=== PATIENT | male | born 1940 | race Caucasian/White ===

== ENCOUNTER 2016-06-21 18:14 | Emergency (ER) | payer MEDICARE ==
[2016-06-21] MEDS ORDERED: IV NORMAL SALINE 500ML BAG 500 ML IV ONE (18:30)
[2016-06-21] MEDS ORDERED: ONDANSETRON PF 4 MG/2 ML VIAL. IV ONE (18:30)
[2016-06-21 18:41] VITALS: BP 189/84
--- NOTE | 2016-06-21 18:52 | EKG ---
[facility] [address] [place] [address] Test Date: 2016-06-21 Test Time: 18:42:21 Pat Name: BLAYNE VALDEZ Department: Room: Gender: M Patent Attorney: : 1940 Requested By: GENARO CALVIN Order Number: [id number] Reading MD: Faye Verdin Measurements Intervals [place] Rate: 59 P: SD: QRS: -48 QRSD: 114 T: 23 QT: 480 QTc: 475 Interpretive Statements IRREGULAR RHYTHM, NO P-WAVE FOUND ABNORMAL LEFT AXIS DEVIATION QRS(T) CONTOUR ABNORMALITY CONSISTENT WITH INFERIOR INFARCT PROBABLY OLD ABNORMAL ECG RI6.01 No previous ECG available for comparison Electronically Signed On 06-23-2016 18:59:16 MATERIALS MGMT TECH by Faye Verdin
[2016-06-21] MEDS ORDERED: MECLIZINE HCL 12.5 MG TABLET. PO ONE (19:15)
[2016-06-21 19:20] LABS: BASO % 0 % (0-3); EOS % 5 % (0-3); HEMATOCRIT 36.5 % (39.0-53.0); HEMOGLOBIN 12.1 g/dL (13.0-17.5); LYMPH % 16 % (24-48); MEAN CORPUSCULAR HEMOGLOBIN 31 pg (25-35); MEAN CORPUSCULAR HGB CONC 33 g/dL (31-37); MEAN CORPUSCULAR VOLUME 94 fL (79-100); MONO % 5 % (0-9); NEUT % 73 % (31-73); PLATELET COUNT 106 x10^3/uL (140-400); RED BLOOD COUNT 3.88 x10^6/uL (4.30-5.70); RED CELL DISTRIBUTION WIDTH 15.9 % (11.5-14.5); WHITE BLOOD COUNT 6.1 x10^3/uL (4.0-11.0)
[2016-06-21 19:28] LABS: CALCIUM 8.5 mg/dL (8.5-10.1); CREATININE 1.6 mg/dL (0.7-1.3); GFR 42.2; POTASSIUM 4.1 mmol/L (3.5-5.1)
[2016-06-21 20:35] LABS: OBC FLU VALID
[2016-06-21 20:41] LABS: BILIRUBIN,URINE SMALL (NEG); GLUCOSE,URINE NEGATIVE (NEG); NITRITE,URINE NEGATIVE (NEG); PH,URINE 5.5; PROTEIN,URINE NEGATIVE (NEG-TRACE)
[2016-06-21] MEDS ORDERED: ONDA4TAB7 PO (20:41)
[2016-06-21] MEDS ORDERED: MECL25TA3 PO (20:41)
--- NOTE | 2016-06-21 20:41 | PHYS DOC ---
Past Medical History Past Medical History: Depression, Diabetes-Type II, GERD, High Cholesterol, Hypertension, Prostatitis, Other Additional Past Medical Histor: CHRONIC BACK, VERTIGO Past Surgical History: Other Additional Past Surgical Histo: STENT PLACEMENT Alcohol Use: None Drug Use: None Adult General Chief Complaint Chief Complaint: NAUSEA/VOMITING/DIARRHA HPI HPI 76-year-old male who presents with Q nonsedative vertigo symptoms and these had previously multiple times. Patient has been prescribed meclizine and past for episodes of vertigo. He denies any chest pain or shortness of breath. He denies any fever or chills. He denies any abdominal pain. Patient states his symptoms are worse when he moves his head or walks. At rest and when he is not moving his head he states he feels otherwise normal. Patient does state he has chronic problems with his years and has trouble hearing. He does also have chronic ringing in his ears. Patient has no headache and appears in no distress at this time. Review of Systems Review of Systems Constitutional: Denies fever or chills [] Eyes: Denies change in visual acuity, redness, or eye pain [] HENT: Denies nasal congestion or sore throat [] Respiratory: Denies cough or shortness of breath [] Cardiovascular: No additional information not addressed in HPI [] GI: Denies abdominal pain, has nausea, denies vomiting, denies bloody stools or diarrhea [] : Denies dysuria or hematuria [] Musculoskeletal: Denies back pain or joint pain [] Integument: Denies rash or skin lesions [] Neurologic: Denies headache, focal weakness or sensory changes [] Endocrine: Denies polyuria or polydipsia [] Current Medications Current Medications Current Medications Medications (Trade) Dose Ordered Sig/Rupal Start Time Stop Time Status Last Admin Dose Admin Meclizine HCl (Antivert) 50 mg 1X ONCE 06/21/16 19:15 06/21/16 19:16 DC 06/21/16 19:15 50 MG Ondansetron HCl 4 mg 4 mg 1X ONCE 06/21/16 18:30 06/21/16 18:43 DC 06/21/16 19:15 4 MG Sodium Chloride (Iv Sodium Chloride 0.9% 500ml Bag) 500 ml @ 500 mls/hr 1X ONCE 06/21/16 18:30 06/21/16 19:29 DC 06/21/16 19:00 500 MLS/HR Allergies Allergies Allergies Coded Allergies Type Severity Reaction Last Updated Verified Penicillins Allergy Unknown 06/21/16 Yes sulfamethoxazole Allergy Unknown 06/21/16 Yes trimethoprim Allergy Unknown 06/21/16 Yes Physical Exam Physical Exam Constitutional: Well developed, well nourished, no acute distress, non-toxic appearance. [] HENT: Normocephalic, atraumatic, bilateral external ears normal, oropharynx moist, no oral exudates, nose normal. [] Eyes: PERRLA, EOMI, conjunctiva normal, no discharge, right sided horizontal nystagmus. [] Neck: Normal range of motion, no tenderness, supple, no stridor. [] Cardiovascular:Heart rate regular rhythm, no murmur [] Lungs & Thorax: Bilateral breath sounds clear to auscultation [] Abdomen: Bowel sounds normal, soft, no tenderness, no masses, no pulsatile masses. [] Skin: Warm, dry, no erythema, no rash. [] Back: No tenderness, no CVA tenderness. [] Extremities: No tenderness, no cyanosis, no clubbing, ROM intact, no edema. [] Neurologic: Alert and oriented X 3, normal motor function, normal sensory function, no focal deficits noted. [] Psychologic: Affect normal, judgement normal, mood normal. [] Current Patient Data Vital Signs Vital Signs Date Time Temp Pulse Resp B/P Pulse Ox O2 Delivery O2 Flow Rate FiO2 06/21/16 18:41 98.0 67 14 189/84 96 Room Air 98.0 Lab Values Laboratory Tests Test 06/21/16 19:10 06/21/16 19:45 06/21/16 20:25 White Blood Count 6.1x10^3/uL (4.0-11.0) Red Blood Count 3.88x10^6/uL (4.30-5.70) L Hemoglobin 12.1g/dL (13.0-17.5) L Hematocrit 36.5% (39.0-53.0) L Mean Corpuscular Volume 94fL (79-100) Mean Corpuscular Hemoglobin 31pg (25-35) Mean Corpuscular Hemoglobin Concent 33g/dL (31-37) Red Cell Distribution Width 15.9% (11.5-14.5) H Platelet Count 106x10^3/uL (140-400) L Neutrophils (%) (Auto) 73% (31-73) Lymphocytes (%) (Auto) 16% (24-48) L Monocytes (%) (Auto) 5% (0-9) Eosinophils (%) (Auto) 5% (0-3) H Basophils (%) (Auto) 0% (0-3) Neutrophils # (Auto) 4.5x10^3uL (1.8-7.7) Lymphocytes # (Auto) 1.0x10^3/uL (1.0-4.8) Monocytes # (Auto) 0.3x10^3/uL (0.0-1.1) Eosinophils # (Auto) 0.3x10^3/uL (0.0-0.7) Basophils # (Auto) 0.0x10^3/uL (0.0-0.2) Sodium Level 142mmol/L (136-145) Potassium Level 4.1mmol/L (3.5-5.1) Chloride Level 106mmol/L (98-107) Carbon Dioxide Level 26mmol/L (21-32) Anion Gap 10 (6-14) Blood Urea Nitrogen 27mg/dL (8-26) H Creatinine 1.6mg/dL (0.7-1.3) H Estimated GFR (Cockcroft-Gault) 42.2 Glucose Level 133mg/dL (70-99) H Calcium Level 8.5mg/dL (8.5-10.1) Troponin I Quantitative < 0.017ng/mL (0.000-0.055) Influenza Type A Antigen Negative (NEGATIVE) Influenza Type B Antigen Negative (NEGATIVE) Urine Collection Type Unknown Urine Color Yellow Urine Clarity Clear Urine pH 5.5 Urine Specific [place] 1.025 Urine Protein Negativemg/dL (NEG-TRACE) Urine Glucose (UA) Negativemg/dL (NEG) Urine Ketones (Stick) Negativemg/dL (NEG) Urine Blood Negative (NEG) Urine Nitrite Negative (NEG) Urine Bilirubin Small (NEG) Urine Urobilinogen Dipstick 1.0mg/dL (0.2 mg/dL) Urine Leukocyte Esterase Negative (NEG) Urine RBC Occ/HPF (0-2) Urine WBC 1-4/HPF (0-4) Urine Squamous Epithelial Cells Few/LPF Urine Bacteria 0/HPF (0-FEW) Urine Hyaline Casts Many/HPF Urine Mucus Marked/LPF Laboratory Tests 06/21/16 19:10 Laboratory Tests 06/21/16 19:10 EKG EKG EKG as interpreted by me shows an irregular rhythm with no clear P waves with a regular rate of 59 beats per minute. There is no evidence ischemia on this EKG. Radiology/Procedures Radiology/Procedures [] Course & Med Decision Making Course & Med Decision Making Pertinent Labs and Imaging studies reviewed. (See chart for details) 76 year old male has a slightly elevated BUN/creatinine with no prior one to compare to. Patient was given doses of Zofran and meclizine as well as a fluid bolus in the department patient was observed for several hours and then ultimately ambulated with success. Patient felt much improved and will be safe to be discharged with strict instruction remain well-hydrated and continue taking meclizine for the next several days as needed and to follow closely his primary care doctor. I discussed at length that the patient may need to be referred to ENT as this is been an ongoing issue with his ears and repeat vertigo episodes. The family is very agreeable with this plan and he will be safe to get close follow-up. There is no indication at this time to obtain any head imaging if the patient has had symptoms like this previously and his symptoms resolved without any significant intervention. His exam is essentially negative other than classic right-sided horizontal nystagmus made worse with head movements. Dragon Disclaimer Dragon Disclaimer This electronic medical record was generated, in whole or in part, using a voice recognition dictation system. Departure Departure Impression: Primary Impression: Vertigo Disposition: 01 HOME, SELF-CARE Condition: STABLE Referrals: BLAYNE COBIAN DO (PCP) Patient Instructions: Benign Positional Vertigo Additional Instructions: Please follow up closely with your primary doctor in the next 2-3 days for your episode of vertigo. Return to the ER if you develop any worsening of your symptoms. Scripts Ondansetron Hcl (Zofran)4 Mg Tablet4 Mg PO BID PRN NAUSEA/VOMITING #10 TAB Prov:GENARO CALVIN DO 06/21/16 Meclizine Hcl 25 Mg [id number] Mg PO 1X PRN DIZZINESS #10 TAB Prov:GENARO CALVIN DO 06/21/16 GENARO CALVIN DO Jun 21, 2016 20:41
[2016-06-21 20:48] LABS: BACTERIA,URINE 0 /HPF (0-FEW); RBC,URINE OCC /HPF (0-2); SQUAMOUS EPITHELIAL CELL,UR FEW /LPF
== END 2016-06-21 20:55 | disposition home or self-care (01) ==
LOC: ER 18:14
DX: R42 Dizziness and giddiness (principal); F32.9 Major depressive disorder, single episode, unspecified; E11.9 Type 2 diabetes mellitus without complications; K21.9 Gastro-esophageal reflux disease without esophagitis; E78.00 Pure hypercholesterolemia, unspecified; I10 Essential (primary) hypertension; Z95.5 Presence of coronary angioplasty implant and graft; Z88.1 Allergy status to other antibiotic agents; Z88.2 Allergy status to sulfonamides; Z88.8 Allergy status to other drugs, medicaments and biological substances
CPT/HCPCS: 36415; 80048; 81001; 84484; 85027; 87804; 93005; 96361; 96374; 99285; J2405; J7040; J8597; 99284-25

== ENCOUNTER → 2016-09-24 | Outpatient (CLI) | payer MEDICARE ==
[~2016-09-24] MED LIST: MECL25TA3 PO; ONDA4TAB7 PO
== END | disposition home or self-care (01) ==
LOC: PCVCCLINIC 16:45
PROVIDERS: ATTEND Internal Medicine
DX: I25.10 Atherosclerotic heart disease of native coronary artery without angina pectoris (principal); I48.0 Paroxysmal atrial fibrillation; I42.9 Cardiomyopathy, unspecified; I10 Essential (primary) hypertension; G47.33 Obstructive sleep apnea (adult) (pediatric); Z79.82 Long term (current) use of aspirin; Z88.0 Allergy status to penicillin
CPT/HCPCS: 80061; 93005; G0463

== ENCOUNTER → 2017-04-10 | Outpatient (CLI) | payer MEDICARE ==
--- NOTE | 2017-04-10 14:52 | PCVCIMAG ---
APPROVED REPORT Study performed: 04/10/2017 09:01:18 EXAM: Comprehensive 2D, Doppler, and color-flow Echocardiogram Patient Location: Echo lab Room #: 2Status: routine BSA: 2.48 HR: 62 bpmBP: 118/64 mmHg Rhythm: NSR Other Information Study Quality: Adequate Risk Factors: Cardiac Risk Factors: HTN Indications Atrial Fibrillation CAD Syncope Cardiomyopathy HX drug eleuding stent x 2 2D Dimensions IVSd: 10.46 (7-11mm)LVOT Diam: 24.71 (18-24mm) LVDd: 44.42 mm PWd: 9.79 (7-11mm)Ascending Ao: 33.03 (22-36mm) LVDs: 32.94 (25-40mm) Left Atrium: 46.10 (27-40mm) Aortic Root: 27.47 mm LV Single Plane 4CH: 55.19 % LV Single Plane 2CH: 64.83 %Damon's LVEF: 60.01 % Biplane EF: 60.7 % Volumes Left Atrial Volume (Systole) Single Plane 4CH: 107.54 mLSingle Plane 2CH: 76.59 mL Biplane LA Volume: 92.00 mLLA ESV Index: 37.00 mL/m2 Aortic Valve AoV Peak Shaan.: 1.17 m/s AO Peak Gr.: 5.49 mmHgLVOT Max P.72 mmHg LVOT Max V: 0.82 m/s CHANELLE Vmax: 3.35 cm2 Mitral Valve E/A Ratio: 3.7 MV Decel. Time: 179.71 ms MV E Max Shaan.: 0.88 m/s MV A Shaan.: 0.24 m/s IVRT: 89.97 ms TDI E/Lateral E': 12.57E/Medial E': 11.00 Medial E' Shaan.: 0.08 m/s Lateral E' Shaan.: 0.07 m/s Pulmonary Vein P Vein S: 0.29 m/sP Vein A: 0.21 m/s P Vein D: 0.82 m/sP Vein A Dur.: 86.5 msec P Vein S/D Ratio: 0.35 Tricuspid Valve TR Peak Shaan.: 2.01 m/s TR Peak Gr.: 16.14 mmHg TV Vmax: 0.82 m/sPA Pressure: 23.00 mmHg Left Ventricle The left ventricle is normal size. There is normal LV segmental wall motion. There is normal left ventricular wall thickness. Left ventricular systolic function is normal. The left ventricular ejection fraction is within the normal range. LVEF is 60-65%. Grade IV - fixed restrictive diastolic dysfunction. Right Ventricle The right ventricle is normal size. The right ventricular systolic function is normal. Atria Left atrium is mildly dilated. The right atrium size is normal. Aortic Valve The aortic valve is normal in structure. No aortic regurgitation is present. There is no aortic valvular stenosis. Mitral Valve The mitral valve is normal in structure. Trace to mild mitral regurgitation. No evidence of mitral valve stenosis. Tricuspid Valve The tricuspid valve is normal in structure. Trace to mild tricuspid regurgitation. Pulmonic Valve The pulmonary valve is normal in structure. There is no pulmonic valvular regurgitation. Great Vessels The aortic root is normal in size. The ascending aorta is normal in size. IVC is normal in size and collapses with >50% inspiration Pericardium There is no pericardial effusion. There is no pleural effusion. <Conclusion> Left ventricular systolic function is normal. There is normal LV segmental wall motion. LVEF is 60-65%. Grade IV - fixed restrictive diastolic dysfunction. The aortic valve is normal in structure. No aortic regurgitation or stenosis The mitral valve is normal in structure. Trace to mild mitral regurgitation. Pulmonary artery pressure could not be reliably ascertained There is no pericardial effusion.
== END | disposition home or self-care (01) ==
LOC: PCVCIMAG 08:52
PROVIDERS: ATTEND Internal Medicine
DX: I25.10 Atherosclerotic heart disease of native coronary artery without angina pectoris (principal); I10 Essential (primary) hypertension; I42.9 Cardiomyopathy, unspecified; I48.0 Paroxysmal atrial fibrillation; J44.9 Chronic obstructive pulmonary disease, unspecified; R55 Syncope and collapse; Z95.5 Presence of coronary angioplasty implant and graft
CPT/HCPCS: 93306

== ENCOUNTER → 2018-07-13 | Outpatient (CLI) | payer MEDICARE | END | disposition home or self-care (01) | LOC: PCVCCLINIC 14:40 | PROVIDERS: ATTEND Internal Medicine | DX: I48.0 Paroxysmal atrial fibrillation (principal); I42.9 Cardiomyopathy, unspecified; I25.10 Atherosclerotic heart disease of native coronary artery without angina pectoris; I10 Essential (primary) hypertension; R94.31 Abnormal electrocardiogram [ECG] [EKG]; E78.5 Hyperlipidemia, unspecified; G47.33 Obstructive sleep apnea (adult) (pediatric); Z88.8 Allergy status to other drugs, medicaments and biological substances; K21.9 Gastro-esophageal reflux disease without esophagitis; E66.9 Obesity, unspecified; Z79.82 Long term (current) use of aspirin; Z79.899 Other long term (current) drug therapy | CPT/HCPCS: 36415; 80061; 93005; G0463 ==

== ENCOUNTER → 2018-07-17 | Outpatient (CLI) | payer MEDICARE ==
--- NOTE | 2018-07-17 12:18 | PCVCIMAG ---
APPROVED REPORT Study performed: 07/17/2018 09:57:33 EXAM: Comprehensive 2D, Doppler, and color-flow Echocardiogram Patient Location: Echo lab Room #: 3Status: routine BSA: 2.50 HR: 68 bpmBP: 120/60 mmHg Rhythm: NSR Other Information Study Quality: Adequate Risk Factors: Cardiac Risk Factors: HTN, Hyperlipidemia Indications CAD Cardiomyopathy Paroxysmal Atrial Fibrillation 2D Dimensions IVSd: 11.31 (7-11mm)LVOT Diam: 23.00 (18-24mm) LVDd: 40.90 mm PWd: 10.72 (7-11mm)Ascending Ao: 31.29 (22-36mm) LVDs: 29.35 (25-40mm) Left Atrium: 43.73 (27-40mm) Aortic Root: 32.19 mm LV Single Plane 4CH: 55.90 % LV Single Plane 2CH: 55.97 % Volumes Left Atrial Volume (Systole) Single Plane 4CH: 70.45 mLSingle Plane 2CH: 109.37 mL LA ESV Index: 38.00 mL/m2 Aortic Valve AoV Peak Shaan.: 1.20 m/s AO Peak Gr.: 5.78 mmHgLVOT Max P.70 mmHg LVOT Max V: 0.82 m/s CHANELLE Vmax: 2.81 cm2 Mitral Valve E/A Ratio: 2.6 MV Decel. Time: 201.48 ms MV E Max Shaan.: 0.88 m/s MV A Shaan.: 0.34 m/s MV PHT: 58.43 ms IVRT: 62.28 ms TDI E/Lateral E': 12.57E/Medial E': 12.57 Medial E' Shaan.: 0.07 m/s Lateral E' Shaan.: 0.07 m/s Pulmonary Valve PV Peak Shaan.: 0.99 m/sPV Peak Gr.: 3.92 mmHg Pulmonary Vein P Vein S: 0.49 m/sP Vein A: 0.21 m/s P Vein D: 0.57 m/sP Vein A Dur.: 83.0 msec P Vein S/D Ratio: 0.86 Left Ventricle The left ventricle is normal size. There is normal LV segmental wall motion. Borderline concentric left ventricular hypertrophy. Left ventricular systolic function is normal. The left ventricular ejection fraction is within the normal range. LVEF is 55%. Grade III Right Ventricle The right ventricle is normal size. The right ventricular systolic function is normal. Atria Left atrium is mildly dilated. Right atrium is borderline dilated. Aortic Valve The aortic valve is mildly sclerotic. No aortic regurgitation is present. There is no aortic valvular stenosis. Mitral Valve The mitral valve is normal in structure. Trace mitral regurgitation. No evidence of mitral valve stenosis. Tricuspid Valve The tricuspid valve is normal in structure. Trace tricuspid regurgitation. Unable to assess PA pressure. Pulmonic Valve The pulmonary valve is normal in structure. There is no pulmonic valvular regurgitation. Great Vessels The aortic root is normal in size. IVC is not well visualized. Pericardium There is no pericardial effusion. <Conclusion> Left ventricular systolic function is normal. There is normal LV segmental wall motion. LVEF is 55%. Severe diastolic dysfunction Both atria are mildly dilated. The aortic valve is mildly sclerotic. No aortic regurgitation or stenosis The mitral valve is normal in structure. Trace mitral regurgitation Pulmonary artery pressure could not be reliably ascertained. There is no pericardial effusion.
== END | disposition home or self-care (01) ==
LOC: PCVCIMAG 09:51
PROVIDERS: ATTEND Internal Medicine
DX: I25.10 Atherosclerotic heart disease of native coronary artery without angina pectoris (principal); I42.9 Cardiomyopathy, unspecified; I48.0 Paroxysmal atrial fibrillation; I10 Essential (primary) hypertension
CPT/HCPCS: 93306

== ENCOUNTER → 2019-03-10 | Outpatient (CLI) | payer MEDICARE | END | disposition home or self-care (01) | LOC: PCVCCLINIC 15:56 | PROVIDERS: ATTEND Internal Medicine | DX: I48.0 Paroxysmal atrial fibrillation (principal); I25.10 Atherosclerotic heart disease of native coronary artery without angina pectoris; I10 Essential (primary) hypertension; I21.29 ST elevation (STEMI) myocardial infarction involving other sites; R94.31 Abnormal electrocardiogram [ECG] [EKG]; I42.9 Cardiomyopathy, unspecified; E78.5 Hyperlipidemia, unspecified; G47.33 Obstructive sleep apnea (adult) (pediatric); K21.9 Gastro-esophageal reflux disease without esophagitis; E66.9 Obesity, unspecified; G47.30 Sleep apnea, unspecified; Z90.49 Acquired absence of other specified parts of digestive tract; Z98.52 Vasectomy status; Z82.49 Family history of ischemic heart disease and other diseases of the circulatory system; Z88.1 Allergy status to other antibiotic agents; Z88.0 Allergy status to penicillin; Z79.899 Other long term (current) drug therapy | CPT/HCPCS: 36415; 80061; 93005; G0463 ==